=== PATIENT | female | born 1970 | race Caucasian/White ===

== ENCOUNTER 2018-01-06 18:49 | Emergency (ER) | payer OTHER ==
[2018-01-06 19:02] VITALS: RESP 16; TEMP 97.8
[2018-01-06] MEDS ORDERED: SODIUM CHLORIDE 0.9% 1,000 ML IV STA (19:13)
[2018-01-06] MEDS ORDERED: LORazepam 2 MG/ML INJ IV STA (19:13)
[2018-01-06 19:43] LABS: Basophils # (A) 0.1 k/uL (0-0.2); Basophils % (A) 1 %; Eosinophils # (A) 0.2 k/uL (0-0.7); Eosinophils % (A) 2 %; HCT 40.2 % (34.0-46.0); HGB 12.8 gm/dL (11.4-16.0); Lymphocytes % (A) 30 %; MCH 28.7 pg (25.0-35.0); MCHC 31.9 g/dL (31.0-37.0); Mean Platelet Volume 8.1; Monocytes # (A) 0.5 k/uL (0-1.0); Monocytes % (A) 5 %; Neutrophils # (A) 5.9 k/uL (1.3-7.7); Neutrophils % (A) 61 %; Platelet Count 296 k/uL (150-450); RBC 4.46 m/uL (3.80-5.40); RDW 13.2 % (11.5-15.5); WBC 9.8 k/uL (3.8-10.6)
[2018-01-06 19:44] LABS: Appearance,Urine Clear (Clear); Bilirubin,Urine Negative (Negative); Blood,Urine Negative (Negative); Color,Urine Light Yellow; Glucose,Urine (UA) 1+ (Negative); Ketones,Urine Negative (Negative); Leukocyte Esterase,Urine Negative (Negative); Nitrite,Urine Negative (Negative); PH, Urine 5.5 (5.0-8.0); Protein,Urine Negative (Negative); Specific Gravity,Urine 1.007 (1.001-1.035); Urobilinogen,Urine <2.0 mg/dL (<2.0)
[2018-01-06 19:46] LABS: VBG PH 7.37 (7.31-7.41)
[2018-01-06 19:52] LABS: ALT 17 U/L (9-52); AST 21 U/L (14-36); Albumin 4.4 g/dL (3.5-5.0); Alkaline Phosphatase 63 U/L (38-126); Anion Gap 13 mmol/L; Blood Urea Nitrogen 13 mg/dL (7-17); Carbon Dioxide 22 mmol/L (22-30); Chloride 104 mmol/L (98-107); Glucose 145 mg/dL (74-99); Sodium 139 mmol/L (137-145); Total Bilirubin 0.3 mg/dL (0.2-1.3); Total Protein 7.7 g/dL (6.3-8.2)
[2018-01-06] MEDS ORDERED: SODIUM CHLORIDE 0.9% 500 ML IV ONE (20:06)
--- NOTE | 2018-01-06 20:06 | ED ---
Dizziness HPI - General Chief Complaint: Dizziness Stated Complaint: dizziness Time Seen by Provider: 01/06/18 19:06 Source: patient Mode of arrival: ambulatory Limitations: no limitations - History of Present Illness Initial Comments: 7 years old lady presents with the dizziness, she will, she was quite dizzy she' ll hard time keeping the balance is also concerned about her sugar her sugar was very high when she been very nauseous she has some cold sweats, this morning she was so dizzy that she fell on the bed. She denies any headaches no blurred vision no slurred speech no chest pain no shortness of breath she is very dizzy and pain no symptoms of tia or cva - Related Data Home Medications Medication Instructions Recorded Confirmed Insulin Aspart (For Pump) [NovoLOG See Protocol SQ-PUMP CONTINUOUS 01/06/1812/25 (For Pump)] Levothyroxine Sodium [Synthroid] 175 mcg PO DAILY 01/06/18 01/06/18 Sleep Aid 1 tab PO HS PRN 01/06/18 01/06/18 metFORMIN HCL 1,000 mg PO DAILY 01/06/18 01/06/18 Previous Rx's Medication Instructions Recorded Meclizine [Antivert] 25 mg PO BID PRN #15 tab 01/06/18 Allergies Allergy/AdvReac Type Severity Reaction Status Date / Time Sulfa (Sulfonamide Allergy Rash/Hives Verified 01/06/18 19:16 Antibiotics) Review of Systems ROS Statement: Those systems with pertinent positive or pertinent negative responses have been documented in the HPI. ROS Other: All systems not noted in ROS Statement are negative. Past Medical History Past Medical History: Diabetes Mellitus History of Any Multi-Drug Resistant Organisms: None Reported Past Surgical History: Joint Replacement Past Psychological History: No Psychological Hx Reported Smoking Status: Never smoker Past Alcohol Use History: Occasional Past Drug Use History: None Reported General Exam Limitations: no limitations Course Vital Signs 01/06/18 01/06/18 18:59 20:48 Temperature 97.8 F Pulse Rate 110 H 88 Respiratory 16 16 Rate Blood Pressure 220/96 160/76 O2 Sat by Pulse 99 99 Oximetry Patient is reassessed at term at 2030, head CT is normal,, chest x-ray, CBC, troponin, EKG to or unremarkable he states was discussed with the patient and now we are going to see how well she ambulates, she walked around she felt that she is not dizzy and she wants to go home - Reevaluation(s) Reevaluation #1: Her blood pressure improved significantly, when she arrived he was sent to 20 systolic before discharge is which active is 167 01/06/18 21:09 EKG Findings - EKG Comments: EKG Findings:: EKG is normal sinus rhythm medical rate is 95 FL interval is 126 QRS duration is 84 QT/QTc is 386/485 review of this EKG does not reveal any ST elevation or ST depression Medical Decision Making - Lab Data Result diagrams: 01/06/18 19:28 01/06/18 19:28 Lab Results 01/06/18 01/06/18 01/06/18 Range/Units 19:28 19:28 19:28 WBC 9.8 (3.8-10.6) k/uL RBC 4.46 (3.80-5.40) m/uL Hgb 12.8 (11.4-16.0) gm/dL Hct 40.2 (34.0-46.0) % MCV 90.0 (80.0-100.0) fL MCH 28.7 (25.0-35.0) pg MCHC 31.9 (31.0-37.0) g/dL RDW 13.2 (11.5-15.5) % Plt Count 296 (150-450) k/uL Neutrophils % 61 % Lymphocytes % 30 % Monocytes % 5 % Eosinophils % 2 % Basophils % 1 % Neutrophils # 5.9 (1.3-7.7) k/uL Lymphocytes # 3.0 (1.0-4.8) k/uL Monocytes # 0.5 (0-1.0) k/uL Eosinophils # 0.2 (0-0.7) k/uL Basophils # 0.1 (0-0.2) k/uL VBG pH 7.37 (7.31-7.41) VBG pCO2 41 (37-51) mmHg VBG HCO3 23 L (24-28) mmol/L Sodium 139 (137-145) mmol/L Potassium 3.8 (3.5-5.1) mmol/L Chloride 104 (98-107) mmol/L Carbon Dioxide 22 (22-30) mmol/L Anion Gap 13 mmol/L BUN 13 (7-17) mg/dL Creatinine 0.70 (0.52-1.04) mg/dL Est GFR (MDRD) Af Amer >60 (>60 ml/min/1.73 sqM) Est GFR (MDRD) Non-Af >60 (>60 ml/min/1.73 sqM) Glucose 145 H (74-99) mg/dL Plasma Lactic Acid [place] (0.7-2.0) mmol/L Calcium 10.0 (8.4-10.2) mg/dL Total Bilirubin 0.3 (0.2-1.3) mg/dL AST 21 (14-36) U/L ALT 17 (9-52) U/L Alkaline Phosphatase 63 (38-126) U/L Troponin I (0.000-0.034) ng/mL Total Protein 7.7 (6.3-8.2) g/dL Albumin 4.4 (3.5-5.0) g/dL Urine Color Urine Appearance (Clear) Urine pH (5.0-8.0) Ur Specific [place] (1.001-1.035) Urine Protein (Negative) Urine Glucose (UA) (Negative) Urine Ketones (Negative) Urine Blood (Negative) Urine Nitrite (Negative) Urine Bilirubin (Negative) Urine Urobilinogen (<2.0) mg/dL Ur Leukocyte Esterase (Negative) 01/06/18 01/06/18 01/06/18 Range/Units 19:28 19:28 19:28 WBC (3.8-10.6) k/uL RBC (3.80-5.40) m/uL Hgb (11.4-16.0) gm/dL Hct (34.0-46.0) % MCV (80.0-100.0) fL MCH (25.0-35.0) pg MCHC (31.0-37.0) g/dL RDW (11.5-15.5) % Plt Count (150-450) k/uL Neutrophils % % Lymphocytes % % Monocytes % % Eosinophils % % Basophils % % Neutrophils # (1.3-7.7) k/uL Lymphocytes # (1.0-4.8) k/uL Monocytes # (0-1.0) k/uL Eosinophils # (0-0.7) k/uL Basophils # (0-0.2) k/uL VBG pH (7.31-7.41) VBG pCO2 (37-51) mmHg VBG HCO3 (24-28) mmol/L Sodium (137-145) mmol/L Potassium (3.5-5.1) mmol/L Chloride (98-107) mmol/L Carbon Dioxide (22-30) mmol/L Anion Gap mmol/L BUN (7-17) mg/dL Creatinine (0.52-1.04) mg/dL Est GFR (MDRD) Af Amer (>60 ml/min/1.73 sqM) Est GFR (MDRD) Non-Af (>60 ml/min/1.73 sqM) Glucose (74-99) mg/dL Plasma Lactic Acid [place] 1.2 (0.7-2.0) mmol/L Calcium (8.4-10.2) mg/dL Total Bilirubin (0.2-1.3) mg/dL AST (14-36) U/L ALT (9-52) U/L Alkaline Phosphatase (38-126) U/L Troponin I <0.012 (0.000-0.034) ng/mL Total Protein (6.3-8.2) g/dL Albumin (3.5-5.0) g/dL Urine Color Light Yellow Urine Appearance Clear (Clear) Urine pH 5.5 (5.0-8.0) Ur Specific [place] 1.007 (1.001-1.035) Urine Protein Negative (Negative) Urine Glucose (UA) 1+ H (Negative) Urine Ketones Negative (Negative) Urine Blood Negative (Negative) Urine Nitrite Negative (Negative) Urine Bilirubin Negative (Negative) Urine Urobilinogen <2.0 (<2.0) mg/dL Ur Leukocyte Esterase Negative (Negative) Disposition Clinical Impression: Severe hypertension, Dizziness, Hyperglycemia Disposition: HOME SELF-CARE Condition: Good Instructions: Dizziness (ED) Prescriptions: Meclizine [Antivert] 25 mg PO BID PRN #15 tab PRN Reason: dizzyness Referrals: Adan Moreland MD [Primary Care Provider] - 1-2 days Shazia Aguayo MD [STAFF PHYSICIAN] - 1-2 days
[2018-01-06 20:08] LABS: Potassium 3.8 mmol/L (3.5-5.1)
--- NOTE | 2018-01-06 20:12 | XR ---
EXAMINATION TYPE: XR chest 2V DATE OF EXAM: 01/06/2018 COMPARISON: NONE HISTORY: Dizziness TECHNIQUE: Frontal and lateral views of the chest are obtained. FINDINGS: Heart and mediastinum are normal. Lungs are clear. Costophrenic angles are clear. Bony tho rax is intact. There are chest leads. IMPRESSION: No active cardiopulmonary disease.
--- NOTE | 2018-01-06 20:43 | CT ---
EXAMINATION TYPE: CT brain wo con DATE OF EXAM: 01/06/2018 COMPARISON: NONE HISTORY: Dizziness and nausea today. CT DLP: 945.5 mGycm. Automated Exposure Control for Dose Reduction was Utilized. TECHNIQUE: CT scan of the head is performed without contrast. FINDINGS: Ventricles and sulci appear normal. There is no mass effect nor midline shift. There is n o sign of intracranial hemorrhage. The calvarium is intact. CONCLUSION: Normal CT scan of the brain.
[2018-01-06 20:49] VITALS: BP 160/76; PULSE 88
--- NOTE | 2018-01-10 04:24 | CDI ---
Documentation Clarification OP Dear Alex PEDRAZA MD Please do addendum to ED report for Physical exam and MDM. Thank you, Minnie Sanderson Interactive Media Specialist If you have any question, Please contact retail business manager at [phone] [facility]
== END 2018-01-06 21:19 | disposition home or self-care (01) ==
LOC: EC 18:49
DX: E11.65 Type 2 diabetes mellitus with hyperglycemia (principal); R42 Dizziness and giddiness; I10 Essential (primary) hypertension; R11.0 Nausea; Z79.4 Long term (current) use of insulin; Z79.899 Other long term (current) drug therapy; Z88.2 Allergy status to sulfonamides; Z53.8 Procedure and treatment not carried out for other reasons
CPT/HCPCS: 36415; 93005; 80053; 82803; 83605; 84484; 85025; 81003; 71046; 70450; 99284; 96374; 96361; J2060

== ENCOUNTER → 2020-10-22 | Outpatient (CLI) | payer OTHER ==
--- NOTE | 2020-10-29 11:18 | MM ---
Reason for exam: screening (asymptomatic). Last mammogram was performed 6 years ago. History: Family history of breast cancer in maternal grandmother. Physical Findings: A clinical breast exam by your physician is recommended on an annual basis and results should be correlated with mammographic findings. MG Screening Mammo w CAD Bilateral CC and MLO view(s) were taken. Prior study comparison: October 23, 2014, mammogram, performed at [facility]. The breast tissue is heterogeneously dense. This may lower the sensitivity of mammography. No significant changes when compared with prior studies. ASSESSMENT: Benign, BI-RAD 2 RECOMMENDATION: Routine screening mammogram of both breasts in 1 year.
== END | disposition home or self-care (01) ==
LOC: RADMAMWWP 14:46
PROVIDERS: ATTEND Physician Assistant
DX: Z12.31 Encounter for screening mammogram for malignant neoplasm of breast (principal)
CPT/HCPCS: 77067

== ENCOUNTER 2021-05-18 11:28 | Emergency (ER) | payer OTHER ==
[2021-05-18 11:55] VITALS: BP 174/86; PULSE 77; RESP 18; TEMP 98
[2021-05-18] MEDS ORDERED: ORPHENADRINE 30 MG/ML 2 ML VIAL IVP STA (12:35)
[2021-05-18] MEDS ORDERED: KETOROLAC 15 MG/ML 1 ML VIAL IVP STA (12:35)
[2021-05-18 12:48] LABS: Appearance,Urine Clear (Clear); Bilirubin,Urine Negative (Negative); Blood,Urine Negative (Negative); Color,Urine Light Yellow; Glucose,Urine (UA) Negative (Negative); Ketones,Urine Negative (Negative); Leukocyte Esterase,Urine Negative (Negative); Nitrite,Urine Negative (Negative); Protein,Urine Negative (Negative); Specific Gravity,Urine 1.005 (1.001-1.035); Urobilinogen,Urine <2.0 mg/dL (<2.0)
[2021-05-18 13:02] LABS: Basophils # (A) 0.1 k/uL (0-0.2); Basophils % (A) 1 %; Eosinophils # (A) 0.2 k/uL (0-0.7); Eosinophils % (A) 3 %; HCT 41.5 % (34.0-46.0); HGB 14.1 gm/dL (11.4-16.0); Lymphocytes # (A) 2.6 k/uL (1.0-4.8); Lymphocytes % (A) 39 %; MCH 30.7 pg (25.0-35.0); MCV 90.3 fL (80.0-100.0); Mean Platelet Volume 8.8; Monocytes # (A) 0.3 k/uL (0-1.0); Monocytes % (A) 4 %; Neutrophils # (A) 3.5 k/uL (1.3-7.7); Neutrophils % (A) 52 %; Platelet Count 249 k/uL (150-450); RBC 4.59 m/uL (3.80-5.40); RDW 12.8 % (11.5-15.5); WBC 6.8 k/uL (3.8-10.6)
[2021-05-18 13:16] LABS: ALT 19 U/L (4-34); AST 30 U/L (14-36); African American GFR (CKD) >90 (>60 ml/min/1.73 sqM); Albumin 4.8 g/dL (3.5-5.0); Alkaline Phosphatase 82 U/L (38-126); Anion Gap 10 mmol/L; Blood Urea Nitrogen 12 mg/dL (7-17); Calcium 10.3 mg/dL (8.4-10.2); Carbon Dioxide 27 mmol/L (22-30); Chloride 105 mmol/L (98-107); Glucose 65 mg/dL (74-99); Non-African American GFR(CKD) >90 (>60 ml/min/1.73 sqM); Potassium 3.7 mmol/L (3.5-5.1); Sodium 142 mmol/L (137-145); Total Bilirubin 0.5 mg/dL (0.2-1.3); Total Protein 7.5 g/dL (6.3-8.2)
--- NOTE | 2021-05-18 13:48 | US ---
EXAMINATION TYPE: US kidneys/renal and bladder DATE OF EXAM: 05/18/2021 COMPARISON: NONE CLINICAL HISTORY: pain left. LEft flank pain, diabetic EXAM MEASUREMENTS: Right Kidney: 9.9 x 5.2 x 3.3 cm Left Kidney: 10.7 x 5.6 x 6.1 cm Post Void Residual Volume: not assessed on EC patient Right Kidney: No hydronephrosis or masses seen Left Kidney: No hydronephrosis or masses seen Bladder: wnl Bilateral Jets seen: yes There is no evidence for hydronephrosis at this point in time. No nephrolithiasis is seen. No maria luz s are identified. The urinary bladder is anechoic. Bilateral ureteral jets are seen. IMPRESSION: No definite hydronephrosis or focal renal lesion is seen.
[2021-05-18] MEDS ORDERED: ACET/COD 300 MG/30 MG STARTER PACK 6 TAB BTL PO STA (13:52)
--- NOTE | 2021-05-18 13:53 | ED ---
Back Pain HPI - General Chief Complaint: Back Pain/Injury Stated Complaint: Back/kidney pain Time Seen by Provider: 05/18/21 12:21 Source: patient, RN notes reviewed Limitations: no limitations - History of Present Illness Initial Comments: 50-year-old female presents emergency Department with chief complaint of left flank pain. Patient states started last couple days it is worse with movement. Patient was seen by PCP sent here for further evaluation. She has a history of pyelonephritis and her concern about this she did have a urinalysis which is unremarkable. She states the pain is worse with movement, when she lays back no chest pain or shortness breath no headache or dizziness. She has a known diabetic. She has no vaginal symptoms. No hematuria no history kidney stones - Related Data Home Medications Medication Instructions Recorded Confirmed Insulin Aspart (For Pump) [NovoLOG See Protocol SQ-PUMP CONTINUOUS 01/06/18 (For Pump)] MDD 50 UNITS metFORMIN HCL 1,000 mg PO DAILY 01/06/18 05/18/21 Atorvastatin Calcium [Lipitor] 20 mg PO DAILY 05/18/21 05/18/21 Levothyroxine Sodium [Synthroid] 150 mcg PO DAILY 05/18/21 05/18/21 lisinopriL [Zestril] 2.5 mg PO DAILY 05/18/21 05/18/21 valACYclovir HCL [Valtrex] 500 mg PO DAILY 05/18/21 05/18/21 Previous Rx's Medication Instructions Recorded Cyclobenzaprine [Flexeril] 10 mg PO TID PRN #15 tab 05/18/21 Ibuprofen [Motrin] 600 mg PO Q8HR PRN #20 tab 05/18/21 Allergies Allergy/AdvReac Type Severity Reaction Status Date / Time Sulfa (Sulfonamide Allergy Rash/Hives Verified 05/18/21 13:53 Antibiotics) Review of Systems ROS Statement: Those systems with pertinent positive or pertinent negative responses have been documented in the HPI. ROS Other: All systems not noted in ROS Statement are negative. Past Medical History Past Medical History: Diabetes Mellitus History of Any Multi-Drug Resistant Organisms: None Reported Past Surgical History: Appendectomy, Joint Replacement Additional Past Surgical History / Comment(s): hip replaces, finger, carpal tunnel, shoulder Past Psychological History: No Psychological Hx Reported Smoking Status: Never smoker Past Alcohol Use History: Occasional Past Drug Use History: None Reported General Exam Limitations: no limitations General appearance: alert, in no apparent distress Head exam: Present: atraumatic, normocephalic, normal inspection Neck exam: Present: normal inspection, full ROM. Absent: tenderness, meningismus, lymphadenopathy Respiratory exam: Present: normal lung sounds bilaterally. Absent: respiratory distress, wheezes, rales, rhonchi, stridor Cardiovascular Exam: Present: regular rate, normal rhythm, normal heart sounds. Absent: systolic murmur, diastolic murmur, rubs, gallop, clicks GI/Abdominal exam: Present: soft, normal bowel sounds. Absent: distended, tenderness, guarding, rebound, rigid Back exam: Present: full ROM, tenderness, paraspinal tenderness. Absent: CVA tenderness (R), CVA tenderness (L), vertebral tenderness Neurological exam: Present: alert Skin exam: Present: warm, dry, intact, normal color. Absent: rash Course Vital Signs 05/18/21 11:53 Temperature 98.0 F Pulse Rate 77 Respiratory 18 Rate Blood Pressure 174/86 O2 Sat by Pulse 99 Oximetry Medical Decision Making - Medical Decision Making Ultrasound, labs urinalysis unremarkable. Patient did have mild hyperglycemia in which patient was artery aware that she is a known diabetic she took some candy. I did recommend rechecking and she states she'll check to herself. Patient discharged in stable condition return parameters were discussed. There is no evidence of infection. - Lab Data Result diagrams: 05/18/21 12:43 05/18/21 12:43 Lab Results 05/18/21 05/18/21 05/18/21 Range/Units 12:22 12:43 12:43 WBC 6.8 (3.8-10.6) k/uL RBC 4.59 (3.80-5.40) m/uL Hgb 14.1 (11.4-16.0) gm/dL Hct 41.5 (34.0-46.0) % MCV 90.3 (80.0-100.0) fL MCH 30.7 (25.0-35.0) pg MCHC 34.0 (31.0-37.0) g/dL RDW 12.8 (11.5-15.5) % Plt Count 249 (150-450) k/uL MPV 8.8 Neutrophils % 52 % Lymphocytes % 39 % Monocytes % 4 % Eosinophils % 3 % Basophils % 1 % Neutrophils # 3.5 (1.3-7.7) k/uL Lymphocytes # 2.6 (1.0-4.8) k/uL Monocytes # 0.3 (0-1.0) k/uL Eosinophils # 0.2 (0-0.7) k/uL Basophils # 0.1 (0-0.2) k/uL Sodium 142 (137-145) mmol/L Potassium 3.7 (3.5-5.1) mmol/L Chloride 105 (98-107) mmol/L Carbon Dioxide 27 (22-30) mmol/L Anion Gap 10 mmol/L BUN 12 (7-17) mg/dL Creatinine 0.75 (0.52-1.04) mg/dL Est GFR (CKD-EPI)AfAm >90 (>60 ml/min/1.73 sqM) Est GFR (CKD-EPI)NonAf >90 (>60 ml/min/1.73 sqM) Glucose 65 L (74-99) mg/dL Calcium 10.3 H (8.4-10.2) mg/dL Total Bilirubin 0.5 (0.2-1.3) mg/dL AST 30 (14-36) U/L ALT 19 (4-34) U/L Alkaline Phosphatase 82 (38-126) U/L Total Protein 7.5 (6.3-8.2) g/dL Albumin 4.8 (3.5-5.0) g/dL Urine Color Light Yellow Urine Appearance Clear (Clear) Urine pH 6.0 (5.0-8.0) Ur Specific [place] 1.005 (1.001-1.035) Urine Protein Negative (Negative) Urine Glucose (UA) Negative (Negative) Urine Ketones Negative (Negative) Urine Blood Negative (Negative) Urine Nitrite Negative (Negative) Urine Bilirubin Negative (Negative) Urine Urobilinogen <2.0 (<2.0) mg/dL Ur Leukocyte Esterase Negative (Negative) Disposition Clinical Impression: Back pain Disposition: HOME SELF-CARE Condition: Stable Instructions (If sedation given, give patient instructions): Acute Low Back Pain (ED) Additional Instructions: Please return to the Emergency Department if symptoms worsen or any other concerns. Prescriptions: Cyclobenzaprine [Flexeril] 10 mg PO TID PRN #15 tab PRN Reason: Muscle Spasm Ibuprofen [Motrin] 600 mg PO Q8HR PRN #20 tab PRN Reason: Pain Is patient prescribed a controlled substance at d/c from ED?: No Referrals: Jyotsna Edgar DO [Primary Care Provider] - 1-2 days Time of Disposition: 13:53
== END 2021-05-18 14:10 | disposition home or self-care (01) ==
LOC: EC 11:28
DX: M54.9 Dorsalgia, unspecified (principal); E11.9 Type 2 diabetes mellitus without complications
CPT/HCPCS: 36415; 80053; 85025; 81003; 76770; 99284; 96374; 96375; J2360; J1885

== ENCOUNTER → 2022-09-27 | Outpatient (CLI) | payer BC ==
[2022-09-27 18:50] LABS: African American GFR (CKD) 88.8 (60.0-200.0); Anion Gap 11.7 mmol/L (10.00-18.00); BUN/Creat Ratio 17.6 Ratio (12.00-20.00); Blood Urea Nitrogen 15.4 mg/dL (9.0-27.0); Calcium 10.1 mg/dL (8.7-10.3); Carbon Dioxide 25.7 mmol/L (20.0-27.5); Non-African American GFR(CKD) 76.6 (60.0-200.0); Potassium 4.3 mmol/L (3.5-5.5); Uric Acid 2.9 mg/dL (2.9-7.7)
[2022-09-27 19:00] LABS: Basophils # (A) 0.04 X 10*3/uL (0.00-0.10); Basophils % (A) 0.7 %; Eosinophils # (A) 0.17 X 10*3/uL (0.04-0.35); Eosinophils % (A) 2.9 %; HCT 40.5 % (37.2-46.3); HGB 12.8 g/dL (12.0-15.0); Immature Grans, Automated 0.2 %; Lymphocytes # (A) 1.96 X 10*3/uL (0.90-5.00); Lymphocytes % (A) 33.2 %; MCH 29.2 pg (27.0-32.0); MCHC 31.6 g/dL (32.0-37.0); MCV 92.5 fL (80.0-97.0); Mean Platelet Volume 11.9 fL (9.5-12.2); Monocytes # (A) 0.36 X 10*3/uL (0.20-1.00); Monocytes % (A) 6.1 %; NRBC Per 100 WBC 0 /100 WBCS (0.0-0.0); Neutrophils # (A) 3.36 X 10*3/uL (1.80-7.70); Neutrophils % (A) 56.9 %; Platelet Count 257 X 10*3/uL (140-440); RBC 4.38 X 10*6/uL (4.10-5.20)
[2022-09-27 19:17] LABS: C Reactive Protein 0.3 mg/dL (0.00-0.80); T4, Free (Free Thyroxine) 1.58 ng/dL (0.800-1.800)
[2022-09-27 19:36] LABS: Erythrocyte Sedimentation Rate 19 mm/Hr (0-30)
[2022-09-27 21:33] LABS: Cyclic Citrull Pep IgG Unit <0.5 U/mL; Cyclic Citrullinated Pep IgG NEGATIVE (NEGATIVE)
[2022-09-28 11:06] LABS: Angiotensin-1 Converting Enz. 30 U/L (8-52)
[2022-09-28 14:11] LABS: HLA B27 NEGATIVE
== END | disposition home or self-care (01) ==
LOC: LABWHC1 11:13
PROVIDERS: ATTEND Internal Medicine Rheumatology
DX: M13.0 Polyarthritis, unspecified (principal)
CPT/HCPCS: 36415; 80048; 82164; 82306; 82550; 83520; 84439; 84443; 84450; 84460; 84550; 85025; 85652; 86140; 86200; 86812

== ENCOUNTER 2023-04-23 10:18 | Emergency (ER) | payer BC ==
[2023-04-23 10:22] VITALS: TEMP 98.1
[2023-04-23] MEDS ORDERED: HYDROcodone/APAP 5-325MG 1 EACH TAB PO STA (10:32)
[2023-04-23] MEDS ORDERED: KETOROLAC 15 MG/ML 1 ML VIAL IM STA (10:32)
--- NOTE | 2023-04-23 10:36 | ED ---
Fall HPI - General Chief Complaint: Fall Stated Complaint: fall,right arm injury Time Seen by Provider: 04/23/23 10:24 Source: patient Mode of arrival: ambulatory - History of Present Illness Initial Comments: Nontoxic-appearing 52-year-old female presents to the emergency room ambulatory with complaints of right shoulder and right-sided rib pain after she tripped last night going to the bathroom falling onto a fan. States right side rib pain and hurts to take deep breath. Patient states she recently had right shoulder surgery 2 months ago and has been healing well. Denies any loss of consciousness did not hit her head. No other injuries. History of diabetes. MD Complaint: fall -: hour(s) Fall Witnessed: no Place Fall Occurred: home Loss of Consciousness: none Prolonged Down Time?: no Symptoms Prior to Fall: none Severity scale (1-10): 9 - Related Data Home Medications Medication Instructions Recorded Confirmed Insulin Aspart (For Pump) [NovoLOG See Protocol SQ-PUMP CONTINUOUS 01/06/18 10/16/21 (For Pump)] MDD 50 UNITS Levothyroxine Sodium [Synthroid] 150 mcg PO DAILY 05/18/21 10/16/21 valACYclovir HCL [Valtrex] 500 mg PO DAILY 05/18/21 10/16/21 Previous Rx's Medication Instructions Recorded Lidocaine 5% Patch [Lidoderm] 1 patch TOPICAL DAILY 14 Days #14 04/23/23 patch Allergies Allergy/AdvReac Type Severity Reaction Status Date / Time Sulfa (Sulfonamide Allergy Rash/Hives Verified 04/23/23 10:20 Antibiotics) Review of Systems ROS Statement: Those systems with pertinent positive or pertinent negative responses have been documented in the HPI. ROS Other: All systems not noted in ROS Statement are negative. Past Medical History Past Medical History: Diabetes Mellitus History of Any Multi-Drug Resistant Organisms: None Reported Past Surgical History: Appendectomy, Joint Replacement Additional Past Surgical History / Comment(s): hip replaces, finger, carpal tunnel, shoulder Past Psychological History: No Psychological Hx Reported Smoking Status: Never smoker General Exam Limitations: no limitations General appearance: alert, in no apparent distress Head exam: Present: atraumatic Eye exam: Present: normal appearance. Absent: scleral icterus, conjunctival injection, periorbital swelling, periorbital tenderness ENT exam: Present: mucous membranes moist Neck exam: Present: full ROM. Absent: tenderness, meningismus Respiratory exam: Present: normal lung sounds bilaterally. Absent: respiratory distress, accessory muscle use Cardiovascular Exam: Present: regular rate GI/Abdominal exam: Present: soft Extremities exam: Present: normal capillary refill Right Shoulder Exam: Present: tenderness, swelling, other (well appearing surgical scar). Absent: full ROM (limited rom, consistent with post surgical ROM), tenderness over AC joint Upper Arm exam: Present: swelling (proximal humerus) Elbow exam: Present: full ROM. Absent: tenderness, swelling Forearm Wrist exam: Present: full ROM. Absent: tenderness, swelling Hand Wrist exam: Present: full ROM. Absent: tenderness, swelling Neurosensory exam: Present: radial nerve intact, ulnar nerve intact, median nerve intact Vascular: Present: normal capillary refill. Absent: vascular compromise Back exam: Present: full ROM. Absent: tenderness, CVA tenderness (L), paraspinal tenderness, vertebral tenderness, rash noted Neurological exam: Present: alert, oriented X3, normal gait Psychiatric exam: Present: normal affect, normal mood Skin exam: Present: warm, dry, normal color. Absent: cyanosis, diaphoretic, petechiae, pallor Course Vital Signs 04/23/23 04/23/23 10:20 12:58 Temperature 98.1 F Pulse Rate 97 86 Respiratory 16 18 Rate Blood Pressure 204/84 164/84 O2 Sat by Pulse 99 99 Oximetry Medical Decision Making - Medical Decision Making Was pt. sent in by a medical professional or institution (SHARIF Blackwell, CONSULTING MANAGER, urgent care, hospital, or fci...) When possible be specific @ -No Did you speak to anyone other than the patient for history (EMS, parent, family, police, friend...)? What history was obtained from this source @ -No Did you review nursing and triage notes (agree or disagree)? Why? @ -I reviewed and agree with nursing and triage notes Were old charts reviewed (outside hosp., previous admission, EMS record, old EKG, old radiological studies, urgent care reports/EKG's, fci records)? Report findings @ -No old charts were reviewed Differential Diagnosis (chest pain, altered mental status, abdominal pain women, abdominal pain men, vaginal bleeding, weakness, fever, dyspnea, syncope, headache, dizziness, GI bleed, back pain, seizure, CVA, palpatations, mental health, musculoskeletal)? @ -Rib fracture, pneumothorax, clavicle fracture, humerus fracture, musculoskeletal pain EKG interpreted by me (3pts min.). @ -n/a X-rays interpreted by me (1pt min.). @ -Yes X-ray of the right shoulder interpreted by me shows right shoulder hardware intact, right-sided ribs interpreted by me negative for acute fracture CT interpreted by me (1pt min.). @ -None done U/S interpreted by me (1pt. min.). @ -None done What testing was considered but not performed or refused? (CT, X-rays, U/S, labs)? Why? @ -None What meds were considered but not given or refused? Why? @ -None Did you discuss the management of the patient with other professionals (professionals i.e. , PA, CONSULTING MANAGER, lab, RT, psych nurse, adoption social worker, music education director, teacher, student liaison officer, case therapist)? Give summary @ -No Was smoking cessation discussed for >3mins.? @ -No Was critical care preformed (if so, how long)? @ -No Were there social determinants of health that impacted care today? How? (Homelessness, low income, unemployed, alcoholism, drug addiction, transportation, low edu. Level, literacy, decrease access to med. care, fci, rehab)? @ -No Was there de-escalation of care discussed even if they declined (Discuss DNR or withdrawal of care, Hospice)? DNR status @ -No What co-morbidities impacted this encounter? (DM, HTN, Smoking, COPD, CAD, Cancer, CVA, ARF, Chemo, Hep., AIDS, mental health diagnosis, sleep apnea, morbid obesity)? @ -Diabetes and hypertension Was patient admitted / discharged? Hospital course, mention meds given and route, prescriptions, significant lab abnormalities, going to OR and other pertinent info. @ -Discharged Nontoxic-appearing 52-year-old female presents to the emergency room ambulatory with complaints of right shoulder and right-sided rib pain after she tripped last night going to the bathroom falling onto a fan. States right side rib pain and hurts to take deep breath. Patient states she recently had right shoulder surgery 2 months ago and has been healing well but concerned for new injury. Denies any loss of consciousness did not hit her head. No other injuries. History of diabetes and hypertension. Blood pressure elevated however patient states she does have a history of hypertension and takes medication but does not remember the name. States did not take her medication today. Radiologist's impression right shoulder arthroplasty changes hardware appears intact, no acute osseous pathology. X-ray of the right ribs no acute osseous pathology Patient was given a [place] and shot of Toradol for her discomfort. Lidoderm patch applied. Blood pressure did come down to 164/84 after pain medication was provided. She was encouraged to continue Tylenol and Motrin as needed. Topical pain relievers like capsaicin, Biofreeze or [place] balm. Lidoderm patch prescription called in for patient. Encouraged to take deep breaths and cough to prevent pneumonia. Follow-up with her primary care doctor next week. Case discussed with Dr. Gardner Undiagnosed new problem with uncertain prognosis? @ -No Drug Therapy requiring intensive monitoring for toxicity (Heparin, Nitro, Insulin, Cardizem)? @ -No Were any procedures done? @ -No Diagnosis/symptom? @ -Right-sided rib pain, fall, musculoskeletal pain Acute, or Chronic, or Acute on Chronic? @ -Acute Uncomplicated (without systemic symptoms) or Complicated (systemic symptoms)? @ -Uncomplicated Side effects of treatment? @ -No Exacerbation, Progression, or Severe Exacerbation? @ -No Poses a threat to life or bodily function? How? (Chest pain, [place], [place], pneumonia, PE, COPD, DKA, ARF, appy, cholecystitis, CVA, Diverticulitis, Homicidal, Suicidal, threat to staff... and all critical care pts) @ -No Disposition Clinical Impression: Fall, Rib pain on right side Disposition: HOME SELF-CARE Condition: Good Instructions (If sedation given, give patient instructions): Musculoskeletal Pain (ED), Fall Prevention (ED) Additional Instructions: Tylenol and or Motrin as needed for pain or discomfort. Use [id number] topical pain relievers like icy hot, Biofreeze or [place] balm. Follow-up with your primary care doctor next week. Remember to take deep breaths and cough to prevent pneumonia. Return to the emergency room with any new or concerning symptoms. Prescriptions: Lidocaine 5% Patch [Lidoderm] 1 patch TOPICAL DAILY 14 Days #14 patch Is patient prescribed a controlled substance at d/c from ED?: No Referrals: Jyotsna Edgar DO [Primary Care Provider] - 1-2 days Time of Disposition: 12:06
--- NOTE | 2023-04-23 11:48 | XR ---
EXAMINATION TYPE: XR shoulder complete RT DATE OF EXAM: 04/23/2023 11:21 AM INDICATION: Patient age:Female; 52 years old; Reason for study: fall pain; COMPARISON: None TECHNIQUE: The right shoulder was examined in AP, internally rotated and scapular Y projections. 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 No evidence of acute o sseous pathology, joint dislocation, or soft tissue swelling. The remaining portions of the visualize d chest are unremarkable. 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 No acute osseous pathology.
--- NOTE | 2023-04-23 11:53 | XR ---
EXAMINATION TYPE: XR ribs RT w pa chest xray DATE OF EXAM: 04/23/2023 11:21 AM INDICATION: Patient age:Female; 52 years old; Reason for study: fall pain; COMPARISON: Chest radiograph same day. TECHNIQUE: Frontal and oblique views of the right ribs with frontal chest radiograph. FINDINGS: The ribs have a normal appearance. No evidence of fracture. Overall, the lungs are clear. The cardiac silhouette is normal in size. The remaining osseous structures are intact. IMPRESSION: No acute osseous pathology.
[2023-04-23] MEDS ORDERED: LIDOCAINE 5% PATCH TOPICAL SCH (12:30)
[2023-04-23 12:59] VITALS: BP 164/84; PULSE 86; RESP 18
== END 2023-04-23 13:27 | disposition home or self-care (01) ==
LOC: EC 10:18
DX: R07.82 Intercostal pain (principal); E11.9 Type 2 diabetes mellitus without complications; Z88.2 Allergy status to sulfonamides; Z79.4 Long term (current) use of insulin; W01.0XXA Fall on same level from slipping, tripping and stumbling without subsequent striking against object, initial encounter; Y92.002 Bathroom of unspecified non-institutional (private) residence as the place of occurrence of the external cause
CPT/HCPCS: 71101; 73030; 99284; 96372; J1885

== ENCOUNTER → 2023-08-15 | Outpatient (CLI) | payer BC ==
--- NOTE | 2023-08-16 08:15 | MM ---
Reason for Exam: Screening (asymptomatic). Last mammogram was performed 2 year(s) and 10 month(s) ago. Patient History: Menarche at age 16. Patient has no children. Postmenopausal. Maternal grandmother had breast cancer. Risk Values: Morenita 5 year model risk: 1.1%. NCI Lifetime model risk: 8.8%. Prior Study Comparison: 10/23/2014 Screening Mammogram, [facility]. 10/22/2020 Bilateral Screening Mammogram, [facility]. Tissue Density: The breast tissue is heterogeneously dense. This may lower the sensitivity of mammography. Findings: Analyzed By CAD. There is no suspicious group of microcalcifications or new suspicious mass in either breast. Overall Assessment: Negative, BI-RAD 1 Management: Screening Mammogram of both breasts in 1 year. A clinical breast exam by your physician is recommended on an annual basis and results should be correlated with mammographic findings. Note on Morenita scores and lifetime risk: 1. A Morenita score greater than 3% is considered moderate risk. If this is the case, consider specialist referral to assess eligibility for a risk reducing agent. If overall lifetime risk for the development of breast cancer is 20% or higher, the patient may qualify for future screening with alternating mammogram and breast MRI. Electronically signed and approved by: Elio Dong D.O.
== END | disposition home or self-care (01) ==
LOC: RADMAMWWP 16:27
PROVIDERS: ATTEND Family Medicine
DX: Z12.31 Encounter for screening mammogram for malignant neoplasm of breast (principal); Z80.3 Family history of malignant neoplasm of breast; Z78.0 Asymptomatic menopausal state
CPT/HCPCS: 77063; 77067